=== PATIENT | male | born 1965 | race Caucasian/White ===

== ENCOUNTER → 2016-08-26 | Outpatient (CLI) | payer BC, OTHER ==
[2016-08-28 10:25] LABS: PSAFREE 0.6 ng/mL (()); PSATOTAL 3.9 ng/mL (<=3.5)
== END ==
LOC: LAB 13:39
PROVIDERS: ATTEND Physician Assistant
DX: R97.20 Elevated prostate specific antigen [PSA] (principal)
CPT/HCPCS: 36415; 84153; 84154

== ENCOUNTER → 2016-11-15 | Outpatient (CLI) | payer BC, OTHER | LOC: LAB 11:51 | PROVIDERS: ATTEND Family Medicine | DX: E03.9 Hypothyroidism, unspecified (principal) | CPT/HCPCS: 36415; 84443 ==

== ENCOUNTER → 2017-03-04 | Outpatient (CLI) | payer BC, OTHER ==
[2017-03-04 12:01] LABS: BASOPHILS % (AUTO) 0.6 % (0-1); EOSINOPHILS % (AUTO) 2.8 % (0-8); HEMATOCRIT 42.8 % (42.0-52.0); HEMOGLOBIN 14.3 g/dL (14.0-18.0); LYMPHOCYTES # (AUTO) 1.88 10*3/uL; MEAN CORPUSCULAR HEMOGLOBIN 27.6 PG (27-31); MEAN CORPUSCULAR HGB CONC 33.4 g/dL (33-37); MEAN CORPUSCULAR VOLUME 82.5 FL (80-90); MEAN PLATELET VOLUME 9.1 FL (7.4-12.2); MONOCYTES % (AUTO) 9.8 % (5-15); NEUTROPHILS # (AUTO) 4.39 10*3/UL; NEUTROPHILS % (AUTO) 60.7 % (50-80); RED BLOOD COUNT 5.19 10^6/uL (4.70-6.10)
[2017-03-04 12:02] LABS: BASOPHILS # (AUTO) 0.04 10*3/UL; MONOCYTES # (AUTO) 0.71 10*3/UL (0.3-0.8); PLATELET MORPHOLOGY COMMENT NORMAL MORPHOLOGY (NORM); RBC MORPHOLOGY COMMENT NORMAL MORPHOLOGY (NORM); WBC MORPHOLOGY COMMENT NORMAL MORPHOLOGY (NORM)
[2017-03-04 12:23] LABS: BLOOD UREA NITROGEN 13 mg/dL (7-22); CALCIUM 9.1 mg/dL (8.7-10.7); CHOL/HDL RATIO 4.53 RATIO (0-4.0); EST GLOMERULAR FILTRATION > 60 (>60 ml/min/1.73m(2)); HDL CHOLESTEROL 43 mg/dL (40-150); SERUM ALBUMIN 3.9 g/dL (3.5-4.8); SERUM CHOLESTEROL 195 mg/dL (120-200)
== END ==
LOC: LAB 11:38
PROVIDERS: ATTEND Family Medicine
DX: Z00.00 Encounter for general adult medical examination without abnormal findings (principal)
CPT/HCPCS: 36415; 80053; 80061; 84443; 85025

== ENCOUNTER 2018-04-07 00:31 | Observation (INO) ==
[2018-04-07] MEDS ORDERED: Sodium Chloride 0.9% 1,000 ML PRIMARY IV ONE (00:41)
[2018-04-07 00:48] LABS: BASOPHILS # (AUTO) 0.04 10*3/UL; BASOPHILS % (AUTO) 0.5 % (0-1); EOSINOPHILS # (AUTO) 0.36 10*3/UL; EOSINOPHILS % (AUTO) 4.6 % (0-8); Hematocrit [HCT] 41.7 % (42.0-52.0); Hemoglobin [HGB] 13.9 g/dL (14.0-18.0); LYMPHOCYTES # (AUTO) 2.47 10*3/uL; MEAN CORPUSCULAR HGB CONC 33.3 g/dL (33-37); MEAN CORPUSCULAR VOLUME 84.1 FL (80-90); MEAN PLATELET VOLUME 9.6 FL (7.4-12.2); MONOCYTES # (AUTO) 0.62 10*3/UL (0.3-0.8); MONOCYTES % (AUTO) 7.9 % (5-15); NEUTROPHILS # (AUTO) 4.33 10*3/UL; NEUTROPHILS % (AUTO) 55.2 % (50-80); RED BLOOD COUNT 4.96 10^6/uL (4.70-6.10)
[2018-04-07 00:52] LABS: PLATELET MORPHOLOGY COMMENT NORMAL MORPHOLOGY (NORM); RBC MORPHOLOGY COMMENT NORMAL MORPHOLOGY (NORM); WBC MORPHOLOGY COMMENT NORMAL MORPHOLOGY (NORM)
--- NOTE | 2018-04-07 00:55 | EKG ---
[address] [address] Measurements Intervals [place] Rate: 65 P: 56 LA: 145 QRS: 14 QRSD: 102 T: 0 QT: 412 QTc: 423 Interpretive Statements SINUS RHYTHM Compared to ECG 04/03/2018 19:51:24 No significant changes Electronically Signed On 04-07-18 08:37:13 MDT by London Kelsey MD [email or web address]
[2018-04-07 00:58] LABS: BLOOD UREA NITROGEN 11 mg/dL (7-22); BUN/CREATININE RATIO 12.22 (6-20); LIPASE 56 IU/L (23-300); SERUM ALBUMIN 3.9 g/dL (3.5-4.8)
--- NOTE | 2018-04-07 01:17 | PDOC ---
Chest Pain HPI - General Chief Complaint: Chest Pain Stated Complaint: CHEST PRESSURE WITH SOB Date Seen by Provider: 04/07/18 Time Seen by Provider: 00:35 Source: Patient Exam Limitations: POSITIVE: No limitations Treatment Prior to Arrival: REPORTS: Nitroglycerin, Aspirin Nurse's Notes Reviewed & Considered: Yes EMS Report Reviewed & Considered: Verbal - History of Present Illness Initial Comments: The patient is a 53-year-old male who presents to the emergency department by ambulance with complaints of chest pain and shortness of breath. 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 He had some associated diaphoresis. He checked in with the medic at work and his blood pressure was initially quite elevated at 200/100. EMS was called. The patient did take 2 aspirin as well as a dose of sublingual nitroglycerin. By the time are EMS arrived patient was feeling significantly better. In route his blood pressure actually dropped into the 90s systolic and he did receive a 600 mL bolus of normal saline with improvement of his blood pressure into the 120s to 160s systolic. On arrival here to the emergency department his chest pain has resolved. He denies any current headache, numbness or weakness in his arms or legs. He does have a previous history of thyroid cancer and takes thyroid medication. He was evaluated here in the emergency department 4 days ago after he had onset of chest pain while walking his dog. His workup here was unremarkable except for low thyroid levels. His thyroid medication was adjusted by his primary care physician earlier today. He denies any history of coronary artery disease however has had a history of atrial fibrillation. He also has a history of hypertension and hyperlipidemia. He denies history of diabetes. - Patient Home Medications Home Medications: Home Medications Atorvastatin Calcium [LIPITOR] 1 tab PO DAILY 09/29/12 losartan 25 mg tablet 25 mg PO QDAY 10/24/17 metoprolol succinate ER 25 mg tablet,extended release 24 hr 25 mg PO QDAY tab 10/24/17 Levothyroxine Sodium [Synthroid] 1 tab PO DAILY 04/07/18 - Patient Allergies Allergies/Adverse Reactions: Allergies 3 Allergy/AdvReac Type Severity Reaction Status Date / Time No Known Allergies Allergy Verified 04/07/18 00:53 Past Medical History - heen HEENT History: Denies History Cardiovascular History: Hypertension, Arrhythmia, Other (please comment) Additional Cardiovasular History: AFIB Respiratory History: Denies History Gastrointestinal History: GERD Genitourinary History: Denies History Endocrine History: Hypothyroidism, Other (please comment) Additional Endocrine History: THYROID CA Musculoskeletal History: Denies History Neurological History: Denies History Blood Disorders: Denies History Psychiatric History: Denies History History of Sexually Transmitted Diseases: No Male Reproductive History: Denies History Cancer History: Other (please comment) In Past Year Been Physically Harmed or Verbally Threatened: No History of MDRO: No History of Other Communicable Diseases: No Tobacco Use: Never Smoker Alcohol Use: Rarely In the Past 12 Months, Have Used or Abuse Any Substance: None Previous Surgical History: Yes Type / Date of Surgery: BILATERAL SHOULDER. LEFT WRIST. BILATERAL CARPAL TUNNEL Anesthesia Reactions: No Malignant Hyperthermia: No Significant Family History: No pertinent family hx Past Medical History Reviewed: Reviewed - No Changes ROS - Limitations ROS Limitations: No Limitations Constitution: DENIES: Chills, Fever Cardiovascular: REPORTS: Chest Pain. DENIES: Heart Palpitations, Edema Respiratory: REPORTS: Shortness Of Breath Neurological: REPORTS: Denies Neuro Symptoms Gastrointestinal: DENIES: Abdominal Pain Endocrine: REPORTS: Denies Symptoms Musculoskeletal: DENIES: Calf Pain, Lower Extremity Swelling Genitourinary: REPORTS: Denies Symptoms Eyes: REPORTS: Denies Symptoms ENT: REPORTS: Denies Symptoms Skin: DENIES: Rash Chest Pain PE - General Appearance General Appearance: REPORTS: Alert, Cooperative, No Acute Distress - HEENT HEENT: POSITIVE: Head Inspection Nml, Eyes Inspection Nml, Ears Inspection Nml, Nose Inspection Nml, Pharynx Inspect. Nml - Respiratory Respiratory: REPORTS: No Respiratory Distress, Breath Sounds Normal - Cardiovascular Cardiovascular: REPORTS: Regular Rate and Rhythm, Heart Sounds Normal Peripheral Pulses: Dorsalis-pedis (R): 2+, Dorsalis-pedis (L): 2+ - Abdomen Abdomen: Soft: (All Quadrants), Denies Tenderness: (All Quadrants), No Distention: (All Quadrants) - Skin Skin: REPORTS: Intact, No Rash - Extremities Extremity: Normal ROM: (All Extremities), Normal Inspection: (All Extremities) - Neurological / Psychological Neurological: POSITIVE: Oriented X3, breast trimmer Normal As Tested, Motor Normal, Sensation Normal Chest Pain Progress - Results Reviewed by me Xrays/CTs/US Reviewed by me: Yes Radiology Findings: Chest x-ray is normal Lab Results Reviewed by Me: Yes CBC and BMP: 04/07/18 00:25 04/07/18 00:25 Lab Results:: Laboratory Results 3 04/07/18 04/07/18 04/07/18 00:25 00:25 00:25 WBC 7.84 RBC 4.96 Hgb 13.9 L Hct 41.7 L MCV 84.1 MCH 28.0 MCHC 33.3 RDW Std Deviation 44.6 RDW Coeff of Laxmi 14.8 H Plt Count 332 MPV 9.6 Immature Gran % (Auto) 0.3 Neut % (Auto) 55.2 Lymph % (Auto) 31.5 Pratt % (Auto) 7.9 Eos % (Auto) 4.6 Baso % (Auto) 0.5 Immature Gran # (Auto) 0.02 Neut # (Auto) 4.33 Lymph # (Auto) 2.47 Pratt # (Auto) 0.62 Eos # (Auto) 0.36 Baso # (Auto) 0.04 WBC Morphology Comment Normal morphology Plt Morphology Comment Normal morphology RBC Morph Comment Normal morphology D-Dimer 0.39 Sodium 140 Potassium 3.3 L Chloride 104 Carbon Dioxide 30 Anion Gap 6 BUN 11 Creatinine 0.9 Estimated GFR > 60 BUN/Creatinine Ratio 12.22 Glucose 97 Calculated Osmolality 288.0 Calcium 8.5 L Magnesium 1.9 Total Bilirubin 0.3 AST 25 ALT 27 Alkaline Phosphatase 82 CK-MB (CK-2) Troponin I C-Reactive Protein 0.9 NT-Pro-B Natriuret Pep 113 Total Protein 6.8 Albumin 3.9 Globulin 2.9 Albumin/Globulin Ratio 1.30 Amylase 50 Lipase 56 3 04/07/18 00:25 WBC RBC Hgb Hct MCV MCH MCHC RDW Std Deviation RDW Coeff of Laxmi Plt Count MPV Immature Gran % (Auto) Neut % (Auto) Lymph % (Auto) Pratt % (Auto) Eos % (Auto) Baso % (Auto) Immature Gran # (Auto) Neut # (Auto) Lymph # (Auto) Pratt # (Auto) Eos # (Auto) Baso # (Auto) WBC Morphology Comment Plt Morphology Comment RBC Morph Comment D-Dimer Sodium Potassium Chloride Carbon Dioxide Anion Gap BUN Creatinine Estimated GFR BUN/Creatinine Ratio Glucose Calculated Osmolality Calcium Magnesium Total Bilirubin AST ALT Alkaline Phosphatase CK-MB (CK-2) 0.60 Troponin I < 0.012 C-Reactive Protein NT-Pro-B Natriuret Pep Total Protein Albumin Globulin Albumin/Globulin Ratio Amylase Lipase EKG Interpreted/Reviewed By Me:: Yes EKG Interpretation:: POSITIVE: Normal Sinus Rhythm, Normal Rate, Normal Intervals, Normal QRS, Other (He does have T-wave inversion in lead 3 which was present on previous EKG, no acute ST segment changes) - Patient's Progress MDM / ED Course: On arrival here the patient is asymptomatic and his blood pressure is in the 150s systolic. His initial EKG shows normal sinus rhythm with no acute ST segment or T-wave changes, he does have T-wave inversion in lead 3 which was present on previous EKG. He had already received aspirin and nitroglycerin as well as a fluid bolus in route. Workup here reveals a normal d-dimer and troponin. These findings are discussed with the patient. Patient's symptoms however are still concerning for angina. Decision was made to admit the patient for further cardiac monitoring and workup. The patient has agreed with this plan. Dr. Harrington has agreed to admit the patient. - Consult Counseled: POSITIVE: Patient, Family, RE: Lab Results, RE: Radiology Results, RE : DX, RE: Need for F/U Patient Care Time - Estimated PCT Patient Care Time (In Minutes): 25 Vital Signs - Recent Vital Signs Vital Signs: Vital Signs (Last 8 hours) Temp Pulse Resp BP Pulse Ox 04/07/18 00:31 98.1 F 77 20 155/84 95 - VS Reviewed Vital Signs Reviewed: Yes Discharge Clinical Impression: Chest pain, Hypertension Discharge Disposition: Admit to Observation Condition: Stable
--- NOTE | 2018-04-07 01:42 | DI ---
History: ITS.REASON Chest Pain Physician Notes: Tech Comments: Exam: XR CXR 1 VIEW Comparison: 04/03/2018 FINDINGS: The lungs are clear. The cardiac and mediastinal contours are within limits. Osteolysis of the distal clavicles again noted. IMPRESSION: No evidence of acute disease.
[2018-04-07] MEDS ORDERED: CALCIUM CARBONATE 500 MG (TUMS) CHEWABLE TABLET PO PRN (02:17)
[2018-04-07] MEDS ORDERED: LIDOCAINE W/ SODIUM BICARB 0.5 ML SYR SUBD PRN (02:17)
[2018-04-07] MEDS ORDERED: ONDANSETRON 4 MG/2 ML VIAL IVP PRN (02:17)
[2018-04-07] MEDS ORDERED: IBUPROFEN 400 MG TABLET PO PRN (03:09)
[2018-04-07] MEDS: LEVOTHYROXINE 50 MCG TABLET PO SCH (04:55)
--- NOTE | 2018-04-07 07:50 | PDOC ---
HPI - History of Present Illness Date of Service: 04/07/18 Time of Service: 07:30 Chief Complaint: Episode of chest pain last night History of Present Illness: This is a 53 years old male with medical history significant for history of hypertension, history of A. fib according to him, history of hypothyroidism, hypercholesterolemia who was brought to the hospital because of chest pain and shortness of breath. Apparently he was at work last night when he started to have pain felt in the middle of the chest associated with shortness of breath. There was radiation to the left arm. The pain was described as pressure. Did have some sweating. He checked in with a medic at work and his blood pressure was elevated at 200/100. He took aspirin and a dose of sublingual nitroglycerin. En Route his blood pressure did drop to 90 systolic and he received a bolus of fluids. By time he came into the ER his pain resolved. He said the pain lasted few minutes. Apparently did have an episode of this week where his blood pressure was elevated although he said he did not have chest pain but the notes from the ER when he came in did describe him having chest pain. He did follow-up with his physician and they gave him nitroglycerin he said he's been taking nitroglycerin for a while as needed. His levothyroxine was adjusted recently. Currently he is denying symptoms. Past Medical History Medical History: 1. History of hypertension. 2. History of hypothyroidism. 3. History of GERD. 4. History of borderline diabetes. 5. History of A. fib according to him. 6. History of thyroid cancer Surgical History: 1. History of for shoulder surgery Pertinent Family History: Family history positive for hypertension Past Social History: He does not smoke but he chews according to him. Does not drink and no drugs. Lives here in [place]. Tobacco Use: Never Smoker In the Past 12 Months, Have Used or Abuse Any of the Following Substance: None Alcohol Use: None Medication / Allergies Home Medications: Home Medications 3 Medication Instructions Recorded Confirmed Type Atorvastatin Calcium [LIPITOR] 1 tab PO DAILY 09/29/12 04/07/18 History losartan 25 mg tablet 25 mg PO QDAY 10/24/17 04/07/18 History metoprolol succinate ER 25 mg 25 mg PO QDAY tab 10/24/17 04/07/18 History tablet,extended release 24 hr Levothyroxine Sodium [Synthroid] 1 tab PO DAILY 04/07/18 04/07/18 History Allergies/Adverse Reactions: Allergies 3 Allergy/AdvReac Type Severity Reaction Status Date / Time No Known Allergies Allergy Verified 04/07/18 00:53 Review of Systems - Review of Systems All Systems: Reviewed & No Additional Complaints Except as Stated Exam - Vitals Vital Signs: Vital Signs Temperature 97.8 F Temperature Source Oral Pulse Rate [Pulse Oximeter] 60 Pulse Rate 61 Respiratory Rate 20 Blood Pressure [Left Arm] 147/79 Blood Pressure 149/80 Pulse Ox 97 Oxygen Delivery Method Room Air Height 6 ft 2 in Weight 281 lb 11.2 oz - General General Appearance: No Acute Distress, Obese - Head Head Exam: Normal Inspection - Eye Eye Exam: POSITIVE: Normal Appearance - ENT ENT Exam: POSITIVE: Normal Exam - Neck Neck Exam: Normal Inspection - Respiratory Respiratory Exam: POSITIVE: Clear to Auscultation - Bilaterally - Cardiovascular Cardiovascular Exam: POSITIVE: RRR - GI/Abdominal GI/Abdominal Exam: POSITIVE: Normal Bowel Sounds, Non Tender, Non Distended, Soft, No Organomegaly - Rectal Rectal Exam: POSITIVE: Deferred - External Exam: POSITIVE: Deferred Exam: POSITIVE: Deferred - Extremities Extremities Exam: POSITIVE: Normal Inspection - Back Back Exam: POSITIVE: Normal Inspection - Neurological Neurological Exam: POSITIVE: Alert, Oriented x 3, CN II-XII Intact, No Facial Droop, Speech Intact / Clear, Moves All Extremities Equally - Psychiatric Psychiatric Exam: POSITIVE: Normal Affect, Normal Mood - Integumentary Integumentary Exam: POSITIVE: Normal Color Results - Labs CBC and BMP: 04/07/18 00:25 04/07/18 00:25 - EKG Data -: EKG Interpreted by Me Rate: Normal EKG Shows Normal: Sinus Rhythm - EKG Data EKG Interpretation: Other (EKG showed normal sinus rhythm with T inversion in V3 which was present before) - Imaging Status: Report Reviewed by Me (Chest X ray no evidence og acute disease) Assessment and Plan - Patient Problems (1) Chest pain Current Visit: Yes Status: Acute Comment: Pain is atypical as it was nonexertional. I think will repeat his enzymes and will try to do a stress test for him today. We'll try to do the stress part today and the resting image tomorrow. We'll watch his blood pressure. We'll hold the metoprolol before the stress test. Code(s): R07.9 - Chest pain, unspecified (2) Hypertension Current Visit: Yes Status: Acute Comment: Blood pressure was elevated last night may be a reaction to the pain itself. Continue losartan will hold the metoprolol before the stress test. Code(s): I10 - Essential (primary) hypertension (3) Hypothyroidism Current Visit: No Status: Acute Comment: Same medications Code(s): E03.9 - Hypothyroidism, unspecified (4) Hypercholesterolemia Current Visit: Yes Status: Acute Comment: Same med Code(s): E78.00 - Pure hypercholesterolemia, unspecified
[2018-04-07] MEDS: POTASSIUM CHLORIDE 20 MEQ TAB PO SCH (08:20)
[2018-04-07] MEDS: ASPIRIN 325 MG EC TABLET PO SCH (08:21)
[2018-04-07] MEDS: LOSARTAN 25 MG TABLET PO SCH (08:21)
[2018-04-07] MEDS ORDERED: METOPROLOL SUCCINATE 25 MG SR 24H TABLET PO SCH (09:00)
--- NOTE | 2018-04-07 14:04 | STRESSTEST ---
[facility] Interpretive Statements patient had lexiscan stress test per protocol, baseline BP was 142/84, heart rate was 58, EKG showed sinus bradycardia with incomplete RBBB, post injection patient did have some shortness of breath and dizziness which did resolve in the recovery phase. Maximum BP was 144/84, maximum heart rate was 92, NO EKG changes noted., Conclusion: No EKG changes noted on the The EKG part of lexiscan sterss test. Images are pending. [id number]
[2018-04-07] MEDS ORDERED: ATORVASTATIN 40 MG TABLET PO SCH (21:00)
[2018-04-08] MEDS: LEVOTHYROXINE 50 MCG TABLET PO SCH (04:29)
[2018-04-08 04:33] VITALS: O2SAT 96
[2018-04-08 07:48] VITALS: RESP 18
[2018-04-08] MEDS ORDERED: METOPROLOL SUCCINATE 25 MG SR 24H TABLET PO SCH (09:00)
[2018-04-08] MEDS: ASPIRIN 325 MG EC TABLET PO SCH (09:13)
[2018-04-08] MEDS: POTASSIUM CHLORIDE 20 MEQ TAB PO SCH (09:14)
[2018-04-08] MEDS: LOSARTAN 25 MG TABLET PO SCH (09:14)
[2018-04-08 11:50] VITALS: BP 152/84; TEMP 97.8
--- NOTE | 2018-04-08 11:59 | DCSUMMARY ---
Hospitalization Summary Hospital Course: Final Discharge Diagnosis: Current Visit Problems Problem Status Onset Code Chest pain Acute R07.9 Hypertension Acute I10 Hypercholesterolemia Acute E78.00 Diagnostic Data, Laboratory Data, and Procedures of Signifigance: History and Physical pertinent to Admission: Course of Hospitalization: This very nice 53-year-old gentleman with past medical history significant for A. 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 Reeves which showed graciously accepted the patient in transfer for further evaluation and treatment Dr. Reeves did not want any heparin drip or other medication patient is already on a statin beta arthur and ron On the date of discharge, the patient was examined: Gen.: [No acute distress, alert, nontoxic] Heart: [Regular rate and rhythm, no murmurs, clicks, gallops, or rubs] Lungs: [Clear to auscultation bilaterally, breathing is nonlabored] Abdomen/GI: [Normal tones on auscultation, soft, nontender, nondistended] Musculoskeletal/extremities: [No clubbing, cyanosis, or edema] Vitals reviewed and are listed below Vital Signs (24 hrs) Temp Pulse Pulse Resp BP Pulse Ox 04/08/18 11:49 97.8 F 67 18 152/84 96 04/08/18 07:47 97.6 F 51 L 18 149/90 96 04/08/18 07:00 54 L 04/08/18 04:32 97.6 F 68 16 147/86 96 04/08/18 03:00 67 04/08/18 00:10 97.2 F 63 16 133/76 95 04/07/18 23:00 66 04/07/18 20:30 97.2 F 62 20 127/76 95 04/07/18 19:00 65 04/07/18 17:00 97.9 F 62 20 153/83 96 04/07/18 15:00 64 04/07/18 13:00 97.7 F 55 L 20 136/80 96 Assessment and Plan: 1. As per discharge assessments above 2. Disposition: Transferred to [facility] accepted by Dr. Reeves 3. Condition on discharge, stable and improved. 4. Diet: regular diet 5. Activities: resume normal activities 6. Follow-Up: 1. [PCP] 2. 7. Medications at the Time of Discharge: Home Medications 3 Medication Instructions Recorded Confirmed Type Atorvastatin Calcium [LIPITOR] 1 tab PO DAILY 09/29/12 04/07/18 History losartan 25 mg tablet 25 mg PO QDAY 10/24/17 04/07/18 History metoprolol succinate ER 25 mg 25 mg PO QDAY tab 10/24/17 04/07/18 History tablet,extended release 24 hr Levothyroxine Sodium [Synthroid] 1 tab PO DAILY 04/07/18 04/07/18 History 8. Time, care, counseling and coordination of care for this discharge is greater than 30 minutes. Exam - Vitals Vital Signs: Vital Signs Temperature 97.8 F Temperature Source Temporal Artery Scan Pulse Rate [Pulse Oximeter] 67 Pulse Rate 54 Respiratory Rate 18 Blood Pressure [Left Arm] 152/84 Blood Pressure 149/80 Pulse Ox 96 Oxygen Delivery Method Room Air Height 6 ft 2 in Weight 281 lb 11.2 oz
--- NOTE | 2018-04-08 12:22 | DI ---
2 DAY LEXISCAN STRESS & REST MYOCARDIAL PERFUSION SCANS, 04/07/2018 7:12 AM : Clinical History: Chest pain Previous Exam: None at this facility. The patient was stressed by Dr. Mi Mckenzie The standard Lexiscan protocol was used. Please see the Doctor's report. At the designated time, 32.5 mCi of 99Tc-sestimibi was injected IV. Stress gated tomograms were acquired within one hour of the i njection. For the resting scans, 34.1 mCi was injected IV and resting gated tomograms were acquired in similar fashion. Stress scans were performed on April 07, 2018; the resting scans were performed on April 08, 2018. Quantitative and qualitative analyses were performed. Quantitative analysis was performed with the [facility] [id number] protocols. Very low dose limited CT scans of the chest are o btained through the level of the heart for attenuation correction of the gated stress and rest cardia c SPECT data. Non-attenuated and attenuated scans were processed for review, and the attenuated scans were used for final interpretation of this study. Review of the raw data images and quality assurance technician files indicate that these series of examinations ar e of excellent quality. There are no rejected beats. Stress and rest left ventricular chamber sizes are normal. Stress and rest LVEF are 66 % and 66 %, r espectively. There is a small area which is predominantly fixed in the anterior apex in the area of the distal le ft anterior descending territory with a small mild intensity component of reversibility. Transient ischemic dilatation ratio is 1.13, with a normal range up to 1.22 for patients str essed with the Duncan protocol and up to 1.33 for patients stressed with the Lexiscan protocol. The very low dose CT scans through the level of the heart show no coronary artery calcifications. The re is no adenopathy or evidence of lung nodules. Reading: There is a predominantly fixed defect which is small within the anterior apex with a very small mild intensity reversibility. This is in the distribution of the left anterior descending artery. There is normal wall motion and normal ejection fraction (66%)
== END 2018-04-08 14:14 | disposition short-term general hospital (02) ==
LOC: ER 00:31 → MED/SURG 00:31
PROVIDERS: ADMIT Internal Medicine; ATTEND Internal Medicine